=== PATIENT | female | born 1965 | race Asian ===

== ENCOUNTER → 2016-09-05 | Outpatient (CLI) | payer BC | LOC: FIMAGING 12:46 | PROVIDERS: ATTEND Internal Medicine | DX: Z12.39 Encounter for other screening for malignant neoplasm of breast (principal); N63 Unspecified lump in breast; N95.9 Unspecified menopausal and perimenopausal disorder; Z98.82 Breast implant status | CPT/HCPCS: 76641-PO; G0204 ==